=== PATIENT | male | born 1980 | race Caucasian/White ===

== ENCOUNTER 2019-02-12 11:35 | Emergency (ER) | payer BC ==
[~2019-02-12] VITALS: Ht 175.3 cm; Wt 82.0 kg
[~2019-02-12 11:35] MED LIST: CEPHALEXIN500 MG OR; CORTISPORIN OTI10 ML AS; KEFLEX500 MG OR; LORTAB 5 OR; LORTAB5 OR; NAPROSYN500 MG OR; ULTRAM50 M1 PO
[2019-02-12 12:26] VITALS: BP 116/82
== END 2019-02-12 12:26 | disposition home or self-care (01) | DRG 563 ==
LOC: ED 11:35
DX: S93.402A Sprain of unspecified ligament of left ankle, initial encounter (principal); F17.210 Nicotine dependence, cigarettes, uncomplicated; W17.2XXA Fall into hole, initial encounter